=== PATIENT | male | born 1995 | race Caucasian/White ===

== ENCOUNTER 2023-08-09 21:32 | Emergency (ER) | payer SELFPAY ==
[~2023-08-09] VITALS: Ht 172.7 cm; Wt 102.3 kg
[~2023-08-09 21:32] MED LIST: MOTRIN 800800 MG/TAB PO
[2023-08-09] MEDS ORDERED: FLEXERIL 1010 MG/TAB PO (22:45)
[2023-08-09 23:08] VITALS: BP 145/96; PULSE 78; TEMP 99.7
== END 2023-08-09 23:08 | disposition home or self-care (01) ==
LOC: COL.ER 21:32
DX: M54.2 Cervicalgia (principal); R51.9 Headache, unspecified; R42 Dizziness and giddiness; V40.5XXA Car driver injured in collision with pedestrian or animal in traffic accident, initial encounter; Y92.410 Unspecified street and highway as the place of occurrence of the external cause
CPT/HCPCS: J2270